=== PATIENT | female | born 1990 | race Caucasian/White ===

== ENCOUNTER 2022-06-27 20:15 | Emergency (ER) | payer OTHER, SELFPAY ==
[2022-06-27 20:19] VITALS: BP 123/78; PULSE 78; RESP 16; TEMP 36.6; O2SAT 99
--- NOTE | 2022-06-27 20:25 | PC.NURSE ---
pt unwilling to have labs drawn without mother who is in the parking lot
[2022-06-27 21:42] LABS: Appearance Urine Slightly Cloudy (Clear); Bilirubin Urine Negative (Negative); Blood Urine Negative (Negative); Color Urine Yellow (Yellow); Glucose Urine UA Negative (Negative); Ketones Urine Negative (Negative); Leukocyte Esterase Ur 2+ LEU/UL (Negative); Nitrate Urine Negative (Negative); Protein Urine Negative (Negative); Urobilinogen Urine 0.2 mg/dL (<2.0)
[2022-06-27 21:51] LABS: Bacteria Urine Trace /hpf; Mucus Urine Rare /lpf; Squamous Epithelial Cell Urine Few /hpf (Few)
[2022-06-27 21:52] LABS: Add Urine Microscopic? YES
--- NOTE | 2022-06-27 23:20 | PC.NURSE ---
pt. to front desk agent asking when she will go back. RN educated pt. unable to give out wait times however pt. informed there are a few people ahead of her. pt. states How I was here first. pt. educated that it is not first come first sever, triage is based off of pt. acuity. pt. states so my kidney's are not important. RN educated pt. that her illness is important however some individuals are more ill than others.
--- NOTE | 2022-06-27 23:30 | PC.NURSE ---
pt called for repeat VS and no answer.
== END 2022-06-27 22:30 | disposition left against medical advice (07) ==
PROVIDERS: Emergency Provider Emergency Medicine
DX: R50.9 Fever, unspecified (principal)
CPT/HCPCS: 81001; 81025; 87086; 99199

== ENCOUNTER 2023-06-30 10:56 | Emergency (ER) | payer OTHER, SELFPAY ==
[2023-06-30 11:02] VITALS: BP 116/84; PULSE 86; RESP 20; TEMP 36.9; O2SAT 95
--- NOTE | 2023-06-30 11:17 | ED.URI ---
HPI - URI/Sore Throat General Chief Complaint: Upper Respiratory Infection Stated Complaint: Sore Throat/Congestion/Fever Time Seen by Provider: 06/30/23 11:10 Source: patient, RN notes reviewed and old records reviewed Mode of arrival: ambulatory Limitations: no limitations History of Present Illness HPI Narrative: 33 year old female who presents to [facility] care with complaints of runny nose, body aches, fevers up to 101.3F, cough, yesterday, nausea and vomiting. Patient reports that she took Tylenol yesterday for her temperature and pain, has not taken any Tylenol or Ibuprofen today, has taken Benzonatate for her cough this morning. Patient states that she took home Covid test yesterday that was negative. MD elicited complaint: cough and sore throat Onset (ago): day(s) (1.5 days) Able to tolerate fluids by mouth: Yes Treatments prior to arrival: acetaminophen and other (Benzonatate) Related Data Home Medications Medication Instructions Recorded Confirmed norethindrone 1 mg-ethinyl tablet 06/27/22 06/27/22 estradiol 20 mcg (21)-iron 75 mg (7) tablet (11/01 (28)) Allergies Allergy/AdvReac Type Severity Reaction Status Date / Time codeine Allergy Unknown Itching Verified 06/27/22 20:17 amoxicillin [From Augmentin] Allergy Rash Verified 06/27/22 20:17 clavulanic acid Allergy Rash Verified 06/27/22 20:17 [From Augmentin] prednisone Allergy Rash Verified 06/27/22 20:17 Review of Systems Review of Systems: CONSTITUTIONAL: Reports malaise, chills, sweats, or fever. EYES: Denies visual changes, redness, or discharge. ENT: Reports rhinorrhea, congestion, sinus pain, otalgia, positive for sore throat. CARDIOVASCULAR: Denies chest pain, palpitations, or edema. RESPIRATORY: Reports cough.? Denies dyspnea. GASTROINTESTINAL: Denies abdominal pain, positive for nausea, vomiting, no diarrhea SKIN: Denies rash or itching. MUSCULOSKELETAL: Reports myalgia. NEUROLOGIC: Denies headache. All systems reviewed & are unremarkable except as noted in HPI and below PMFSH Past Medical History Medical History (Updated 07/01/23 @ 09:39 by Sandi Thurston NP) Borderline personality disorder Kidney stones Surgical History Surgical History (Updated 06/30/23 @ 11:36 by Sandi Thurston NP) History of tonsillectomy Social History Social History (Updated 07/01/23 @ 09:35 by Sandi Thurston NP) Smoking status: Never smoker Alcohol intake: current Gender identity (if verbalized by the patient): Female Comments At time of signature, agree with nursing past medical, surgical, social and family history. There is no relevant family history pertinent to the presenting complaint Exam Narrative: GENERAL: Well-appearing, well-nourished, and in no acute distress. HEAD: Normocephalic EYES: PERRLA, conjunctivae clear ENT: Nares clear, turbinates edematous and erythematous, clear discharge. Mucous membranes moist. TM pearly healy with dull light reflex bilaterally; no tragal tenderness. Oropharynx erythematous without lesions. Tonsils not enlarged and without exudate, no drooling, no hoarseness, no trismus, uvula midline.post nasal drainage NECK: Supple. No lymphadenopathy CHEST: Clear to auscultation, breath sounds equal. No wheezing, rhonchi, rales, or stridor. No respiratory distress, speaks in full sentences.cough, SAO2 95% on room air HEART: Regular rate and rhythm. No murmur heard. SKIN: Warm, dry, no rash. NEURO: Alert and oriented x3. PSYCH: Normal mood and affect Course Course Emergency Course: Patient is aware of diagnosis, understands and agrees to treatment plan.? Anticipatory guidance given.? Patient agrees to follow-up as directed and is aware of reasons to seek care at the emergency department. Portions of this record may have been created with voice recognition software Level of Care: Express Care Visit Vital Signs Vital signs: Vital Signs Temp
== END 2023-06-30 11:46 | disposition home or self-care (01) ==
PROVIDERS: Emergency Provider Registered Nurse; PCP Nurse Practitioner Family
DX: J06.9 Acute upper respiratory infection, unspecified (principal)
CPT/HCPCS: 87081; 87804; 87880; 99213; G0463

== ENCOUNTER 2023-11-17 14:42 | Emergency (ER) | payer OTHER, SELFPAY ==
--- NOTE | 2023-11-17 14:47 | ED.GENADULT ---
HPI - General Adult General Chief complaint: Fever Stated complaint: fever/aches/headache Source: patient, RN notes reviewed and old records reviewed Mode of arrival: ambulatory Limitations: no limitations History of Present Illness HPI narrative: 33 year female presents to [facility] with complaint of cough, congestion, myalgia, fever that started yesterday. Patient taking [id number] Tylenol with little relief. Patient denies chest pain, shortness of breath, dizziness, weakness. Related Data Home Medications Medication Instructions Recorded Confirmed norethindrone 1 mg-ethinyl tablet 06/27/22 06/27/22 estradiol 20 mcg (21)-iron 75 mg (7) tablet (11/01 (28)) Allergies Allergy/AdvReac Type Severity Reaction Status Date / Time codeine Allergy Unknown Itching Verified 06/27/22 20:17 amoxicillin [From Augmentin] Allergy Rash Verified 06/27/22 20:17 clavulanic acid Allergy Rash Verified 06/27/22 20:17 [From Augmentin] prednisone Allergy Rash Verified 06/27/22 20:17 Review of Systems Constitutional: Constitutional: Reports no additional constitutional complaints, Reports body ache(s), Denies chills, Denies fatigue, Reports fever(s) and Denies headache(s) Eyes: Eyes: Reports no additional eye complaints and Denies blurry vision ENT: Reports system reviewed and no additional complaints, except as documented, Denies vertigo, Denies dizziness, Denies ear discharge, Denies otalgia, Denies facial pain, Denies headache(s), Reports nasal congestion, Denies nasal discharge, Denies sinus pain, Denies sinus pressure and Denies sore throat Cardiovascular: Cardiovascular: Reports no additional cardiovascular complaints, Denies chest pain, Denies chest pain at rest, Denies rapid heart rate and Denies dyspnea Respiratory: Respiratory: Reports no additional respiratory complaints, Reports chest congestion, Reports cough, Denies pain on inspiration, Denies pain with cough and Denies dyspnea Gastrointestinal: Gastrointestinal: Denies abdominal pain, Denies diarrhea, Denies nausea and Denies vomiting Integumentary/Breasts: Skin/Breast: Denies rash Neurologic: Reports system reviewed and no additional complaints, except as documented, Denies vertigo, Denies dizziness and Denies headache(s) Endocrine: Endocrine: Denies fatigue [facility] Past Medical History Medical History Borderline personality disorder Kidney stones Surgical History Surgical History History of tonsillectomy Social History Social History Smoking status: Never smoker Alcohol intake: current Gender identity (if verbalized by the patient): Female Comments At the time of my signature, I reviewed and agree with the nursing past medical, surgical, social, and family history. There is no relevant family history pertinent to the patient complaint. Exam Const: General: cooperative, healthy appearing, no acute distress and well nourished Nutritional Appearance: well nourished Orientation/consciousness: patient oriented x3 Limitations: no limitations HENMT: Head: normal to inspection and normocephalic Ears: external ears normal, TM's normal bilaterally, mastoids normal and Abnormal EAC present Face/Nose/Sinus: normal facial exam Face and sinus: normal facial exam Mouth: Yes Normal oral and palatal mucosa present, Yes oropharynx normal and Yes moist mucous membranes Throat: tonsils normal, uvula midline, posterior oropharynx abnormal erythema and no uvular edema Eyes: General: appearance normal, both eyes and all related structures Sclera: sclerae normal Pupils: Equal, round and reactive pupils present Resp: Effort & Inspection: normal respiratory effort, able to speak in complete sentences, no audible wheezes, no cough, no respiratory distress and no retractions Auscultat
[2023-11-17 14:57] VITALS: BP 120/70; PULSE 88; RESP 16; TEMP 37; O2SAT 100
== END 2023-11-17 15:21 | disposition home or self-care (01) ==
PROVIDERS: Emergency Provider Registered Nurse; PCP Nurse Practitioner Family
DX: U07.1 COVID-19 (principal)
CPT/HCPCS: 87081; 87426; 87804; 87880; 99213; G0463